=== PATIENT | female | born 1980 | race Caucasian/White ===

== ENCOUNTER 2021-04-01 19:12 | Observation (INO) ==
[2021-04-01] MEDS ORDERED: NS 0.9% 1000 ml BAG 1,000 ML IV ONE (20:13)
[2021-04-01] MEDS ORDERED: Famotidine IV 10 MG/ML 2 ml VIAL (20 mg) IV SLOW PU ONE (20:13)
[2021-04-01] MEDS ORDERED: Ondansetron 4 mg VIAL 2 MG/ML 2 ml VIAL IV ONE (20:13)
[2021-04-01 20:58] LABS: ABS Eosinophils 0.1 10^3/ul (0-0.6); ABS Lymphocytes 1.3 10^3/ul (1.0-4.8); ABS Monocytes 0.6 10^3/ul (0-0.8); ABS Neutrophils 9.2 10^3/ul (1.5-7.7); Eosinophil % 0.6 %; Hematocrit 41 % (35-47); Hemoglobin 14.3 g/dL (12.0-16.0); Lymphocyte % 11.5 %; Mean Corpuscular HGB Conc 35 g/dL (31-36); Mean Corpuscular Hemoglobin 36 pg (27-31); Mean Corpuscular Volume 102 fL (80-97); Mean Platelet Volume 8.3 fL (7.4-10.4); Platelet Count 157 10^3/uL (150-450); Red Blood Count 4.02 10^6 /uL (3.70-4.87); Red Cell Distribution Width 12 % (10-15); White Blood Count 11.2 10^3/uL (3.5-10.8)
[2021-04-01 21:13] LABS: Albumin 4.2 g/dL (3.2-5.2); Albumin/Globulin Ratio 1.4 (1-3); C Reactive Protein 4.89 mg/L (<8.01); Calcium 9.1 mg/dL (8.6-10.3); Globulin 2.9 g/dL (2-4); Potassium 3.7 mmol/L (3.5-5.0); Total Bilirubin 1.3 mg/dL (0.2-1.0); Total Protein 7.1 g/dL (6.4-8.9)
[2021-04-01] MEDS ORDERED: Prochlorperazine 5 mg/ml 2 ml VIAL (10 mg) IV PRN (23:02)
[2021-04-02 00:02] LABS: Urine Appearance Cloudy; Urine Bilirubin Negative (Negative); Urine Blood 1+ (Negative); Urine Color Amber; Urine Glucose Negative (Negative); Urine Ketones 1+ (Negative); Urine Nitrite Negative (Negative); Urine Protein Negative (Negative); Urine Specific Gravity 1.013 (1.002-1.030); Urine Urobilinogen Positive (Negative)
[2021-04-02 00:08] LABS: Urine Bacteria 1+ (Absent); Urine Red Blood Cell Trace(0-2/hpf) (Absent); Urine Squamous Epithelial Cell Present (Absent); Urine White Blood Cell Trace(0-5/hpf) (Absent); Urine Yeast Present (Absent)
[2021-04-02] MEDS ORDERED: Ondansetron 4 mg VIAL 2 MG/ML 2 ml VIAL IV PRN (02:23)
[2021-04-02 02:32] LABS: Rapid COVID-19 Molecular Undetected (Undetected)
[2021-04-02] MEDS: NS 0.9% 1000 ml BAG 1,000 ML IV SCH ×2 (02:53→13:48)
[2021-04-02] MEDS ORDERED: ZOSYN 3.375 GM x ONE DOSE over 30 miuntes IV (03:00)
[2021-04-02] MEDS: HYDROmorphone 1 MG/1 ML SYRINGE IV SLOW PU PRN ×2 (03:18→23:33)
[2021-04-02] MEDS: Piperacillin/Tazobactam VIAL 3.375 GM in NS 0.9% 100 ml BAG 100 ML IVPB SCH ×2 (07:21→17:44)
[2021-04-02 08:08] LABS: ALT 306 U/L (7-52); AST 575 U/L (13-39); Albumin 3.7 g/dL (3.2-5.2); Albumin/Globulin Ratio 1.4 (1-3); Alkaline Phosphatase 124 U/L (35-149); Anion Gap 7 mmol/L (2-11); Blood Urea Nitrogen 6 mg/dL (6-24); CO2 Carbon Dioxide 20 mmol/L (22-32); Calcium 8.8 mg/dL (8.6-10.3); Chloride 111 mmol/L (101-111); Globulin 2.7 g/dL (2-4); Glucose 100 mg/dL (70-100); Potassium 3.6 mmol/L (3.5-5.0); Sodium 138 mmol/L (135-145); Total Protein 6.4 g/dL (6.4-8.9)
[2021-04-02 09:15] LABS: HCG Pregnancy < 0.60 mIU/mL
[2021-04-02] MEDS ORDERED: Bupivacaine 0.25% SDV 30 ML ONE (14:27)
[2021-04-02] MEDS ORDERED: Iohexol 180 (CONTRAST) 20 ML SDV IV ONE (16:13)
[2021-04-02] MEDS ORDERED: Iohexol 180 (CONTRAST) 10 ML SDV IV ONE (16:15)
[2021-04-02] MEDS ORDERED: Midazolam 2 mg/2 ml VIAL 1 mg/ml 2 ml VIAL (2 mg) ONE (16:32)
[2021-04-02] MEDS ORDERED: Rocuronium 50 mg VIAL 10 mg/ml 5 ml VIAL (50 mg) ONE (17:14)
[2021-04-02] MEDS ORDERED: Lidocaine 2% PF 5 ML VIAL ONE (17:15)
[2021-04-02] MEDS ORDERED: Propofol 10 MG/ML 20 ML BTL ONE ×2 (17:15→19:12)
[2021-04-02] MEDS ORDERED: fentaNYL 250 mcg/5 ml 50 MCG/ML 5 ml VIAL (250 MCG) ONE (17:15)
[2021-04-02] MEDS ORDERED: Succinylcholine 200 mg VIAL 20 mg/ml 10 ml VIAL (200 mg) ONE (17:21)
[2021-04-02] MEDS ORDERED: HYDROmorphone 1 MG/1 ML SYRINGE ONE (17:46)
[2021-04-02] MEDS ORDERED: Ondansetron 4 mg VIAL 2 MG/ML 2 ml VIAL ONE (17:46)
[2021-04-02] MEDS ORDERED: Dexamethasone IV 4 MG/ML VIAL 1 ml VIAL ONE (17:46)
[2021-04-02] MEDS ORDERED: fentaNYL 100 mcg/2 ml 50 MCG/ML VIAL ONE (18:20)
[2021-04-02] MEDS ORDERED: Naloxone 0.4 mg VIAL 0.4 mg/ml 1 ml VIAL IV PRN (19:05)
[2021-04-02] MEDS ORDERED: fentaNYL 100 mcg/2 ml 50 MCG/ML VIAL IV PRN (19:05)
[2021-04-02] MEDS ORDERED: DiMENhydriNATE IV 50 mg/ml 1 ml VIAL IV PUSH PRN (19:05)
[2021-04-02] MEDS ORDERED: oxyCODONE/Acetamin 5/325 mg TAB PO PRN (20:58)
[2021-04-03] MEDS: HYDROmorphone 1 MG/1 ML SYRINGE IV SLOW PU PRN (04:59)
[2021-04-03] MEDS: NS 0.9% 1000 ml BAG 1,000 ML IV SCH (06:24)
[2021-04-03 06:55] LABS: ABS Lymphocytes 1.3 10^3/ul (1.0-4.8); ABS Monocytes 0.4 10^3/ul (0-0.8); Eosinophil % 0.3 %; Hematocrit 34 % (35-47); Lymphocyte % 19.5 %; Mean Corpuscular HGB Conc 36 g/dL (31-36); Mean Corpuscular Hemoglobin 36 pg (27-31); Mean Corpuscular Volume 102 fL (80-97); Mean Platelet Volume 8.8 fL (7.4-10.4); Platelet Count 121 10^3/uL (150-450); Red Blood Count 3.31 10^6 /uL (3.70-4.87); Red Cell Distribution Width 12 % (10-15); White Blood Count 6.8 10^3/uL (3.5-10.8)
[2021-04-03 07:15] LABS: Albumin 3.5 g/dL (3.2-5.2); Albumin/Globulin Ratio 1.3 (1-3); Calcium 8.5 mg/dL (8.6-10.3); Globulin 2.6 g/dL (2-4); Potassium 3.7 mmol/L (3.5-5.0); Total Protein 6.1 g/dL (6.4-8.9)
[2021-04-03 07:51] VITALS: BP 129/85
== END 2021-04-03 09:42 | disposition home or self-care (01) ==
LOC: ED 19:12 → SSU 19:12
PROVIDERS: ADMIT Surgery; ATTEND Surgery Surgical Critical Care